=== PATIENT | female | born 1975 | race African-American/Black ===

== ENCOUNTER 2018-07-06 20:41 | Emergency (ER) | payer BC ==
[2018-07-06 20:55] VITALS: RESP 18
--- NOTE | 2018-07-06 21:39 | ED ---
General Adult HPI - General Chief complaint: Abdominal Pain Stated complaint: abdominal pain/black stool Time Seen by Provider: 07/06/18 21:39 Source: patient Mode of arrival: ambulatory Limitations: no limitations - History of Present Illness Initial comments: 43-year-old diabetic female presents to the ER for evaluation of multiple days of epigastric abdominal burning, cramping, nausea and one episode of dark stools today. Patient reports that she's been having some epigastric discomfort for a number of days, she was evaluated at an outpatient clinic earlier in the week and advised that she likely has GERD, she was prescribed Protonix and advised to follow up outpatient. Patient reports she has taken 2 doses of Protonix but continues to have burning epigastric pain. She states that she is also been taking Khadra-[place] and Pepto with temporary relief of her abdominal discomfort. Patient reports that this morning she had a bowel movement and noted that it was very dark in color, she became concerned that this may indicate that there was blood in her stool so she came to the ER for reevaluation. Patient reports persistent nausea but no vomiting. She reports that she hasn't been eating or drinking well for a few days. She reports that she is concerned she may be getting dehydrated because her urine looked very dark today. Patient reports that she occasionally takes Midol when she is having her menses , and occasionally takes Khadra-[place] but other than that does not take aspirin or NSAIDs on a daily basis. Patient denies any GI history. She has never been evaluated by GI. She has no history of acid reflux, ulcers, pancreatitis in the past. She reports that she has a social alcohol drinker but has not been drinking recently. She's not a binge drinker. She reports that she's had a history of a cholecystectomy for symptomatic cholelithiasis in the past. - Related Data Home Medications Medication Instructions Recorded Confirmed Insulin Glargine,Hum.rec.anlog 50 unit SQ BID 10/29/14 07/06/18 [Lantus Solostar] Pnv,Calcium 72/Iron/Folic Acid 1 tab PO DAILY 02/09/16 07/06/18 [ Plus Tablet] INSULIN LISPRO (HumaLOG) [HumaLOG] 25 unit SQ BID 07/06/18 07/06/18 Previous Rx's Medication Instructions Recorded Nitrofurantoin Monohyd/M-Cryst 100 mg PO Q12HR 5 Days #10 cap 07/06/18 [Macrobid] Sucralfate [Carafate] 1 gm PO ACHS #1 bottle 07/06/18 Allergies Allergy/AdvReac Type Severity Reaction Status Date / Time cephalexin monohydrate Allergy Rash/Hives Verified 07/06/18 21:15 [From Keflex] Penicillins Allergy Rash/Hives Verified 07/06/18 21:15 erythromycin base AdvReac Nausea & Verified 07/06/18 21:15 [Erythromycin Base] Vomiting & Diarrhea Review of Systems ROS Statement: Those systems with pertinent positive or pertinent negative responses have been documented in the HPI. ROS Other: All systems not noted in ROS Statement are negative. Past Medical History Past Medical History: Diabetes Mellitus, Hypertension Additional Past Medical History / Comment(s): syncopal episodes, ectopic History of Any Multi-Drug Resistant Organisms: None Reported Past Surgical History: Appendectomy, Cholecystectomy Additional Past Surgical History / Comment(s): D&C, fallopian tube Past Psychological History: Anxiety, Depression Smoking Status: Never smoker Past Alcohol Use History: Rare Past Drug Use History: None Reported General Exam Limitations: no limitations General appearance: alert, in no apparent distress Head exam: Present: atraumatic, normocephalic Eye exam: Present: normal appearance, PERRL ENT exam: Present: normal exam Neck exam: Present: normal inspection Respiratory exam: Present: normal lung sounds bilaterally. Absent: respiratory distress Cardiovascular Exam: Present: regular rate, normal rhythm GI/Abdominal exam: Present: soft, tenderness, normal bowel sounds. Absent: distended, guarding, rebound, rigid Rectal exam: Present: normal rectal tone. Absent: heme (+) stool, black stool, bloody stool, fecal impaction Extremities exam: Present: full ROM, normal capillary refill. Absent: pedal edema Back exam: Present: normal inspection Neurological exam: Present: alert, oriented X3 Psychiatric exam: Present: normal affect, normal mood Skin exam: Present: warm, dry. Absent: petechiae, pallor Course Vital Signs 07/06/18 07/06/18 20:53 23:51 Temperature 98.3 F 98.0 F Pulse Rate 91 88 Respiratory 18 18 Rate Blood Pressure 158/106 149/89 O2 Sat by Pulse 100 100 Oximetry EKG Findings - EKG Comments: EKG Findings:: EKG obtained at 2211, rate is 65, rhythm is sinus, normal axis, normal intervals, NC 158, QRS 92, QTc 436, there are no acute ST elevations or depressions, there is no evidence of acute ischemia or infarction Medical Decision Making - Medical Decision Making The patient was seen and evaluated, history is obtained from the patient Patient with burning epigastric abdominal pain for a number of days, has been taking Protonix 2 days as well as drinking Pepto, noted that she had some black stools today Guaiac was negative, I suspect the black discoloration of her stools is secondary to taking Pepto and discussed this with the patient Patient is otherwise hemodynamically stable, however she is a 43-year-old -[place] diabetic female with epigastric discomfort so I will pursue a further workup with EKG, labs and chest x-ray Labs and imaging were unremarkable Results were discussed with the patient who reports some improvement after GI cocktail Patient agreeable to plan for discharge home, by mouth Carafate, discontinuation of Pepto and follow up with gastroenterology. All questions pertaining to care were answered to the best my ability the patient was discharged home in stable condition. - Lab Data Result diagrams: 07/06/18 21:05 07/06/18 21:05 Lab Results 07/06/18 07/06/18 07/06/18 Range/Units 21:05 21:05 21:05 WBC 9.2 (3.8-10.6) k/uL RBC 5.44 H (3.80-5.40) m/uL Hgb 13.1 (11.4-16.0) gm/dL Hct 42.9 (34.0-46.0) % MCV 78.8 L (80.0-100.0) fL MCH 24.1 L (25.0-35.0) pg MCHC 30.6 L (31.0-37.0) g/dL RDW 14.8 (11.5-15.5) % Plt Count 313 (150-450) k/uL Neutrophils % 41 % Lymphocytes % 47 % Monocytes % 6 % Eosinophils % 3 % Basophils % 1 % Neutrophils # 3.7 (1.3-7.7) k/uL Lymphocytes # 4.3 (1.0-4.8) k/uL Monocytes # 0.6 (0-1.0) k/uL Eosinophils # 0.3 (0-0.7) k/uL Basophils # 0.1 (0-0.2) k/uL Hypochromasia Slight Sodium 140 (137-145) mmol/L Potassium 3.9 (3.5-5.1) mmol/L Chloride 104 (98-107) mmol/L Carbon Dioxide 24 (22-30) mmol/L Anion Gap 12 mmol/L BUN 11 (7-17) mg/dL Creatinine 0.79 (0.52-1.04) mg/dL Est GFR (CKD-EPI)AfAm >90 (>60 ml/min/1.73 sqM) Est GFR (CKD-EPI)NonAf >90 (>60 ml/min/1.73 sqM) Glucose 130 H (74-99) mg/dL Calcium 9.4 (8.4-10.2) mg/dL Total Bilirubin 0.7 (0.2-1.3) mg/dL AST 23 (14-36) U/L ALT 24 (9-52) U/L Alkaline Phosphatase 64 (38-126) U/L Troponin I (0.000-0.034) ng/mL Total Protein 8.2 (6.3-8.2) g/dL Albumin 4.5 (3.5-5.0) g/dL Amylase 45 (30-110) U/L Lipase 50 (23-300) U/L Urine Color Yellow Urine Appearance Cloudy H (Clear) Urine pH 6.0 (5.0-8.0) Ur Specific Myra 1.028 (1.001-1.035) Urine Protein 1+ H (Negative) Urine Glucose (UA) Trace H (Negative) Urine Ketones Negative (Negative) Urine Blood Negative (Negative) Urine Nitrite Negative (Negative) Urine Bilirubin Negative (Negative) Urine Urobilinogen 2.0 (<2.0) mg/dL Ur Leukocyte Esterase Moderate H (Negative) Urine RBC 2 (0-5) /hpf Urine WBC 43 H (0-5) /hpf Ur Squamous Epith Cells 17 H (0-4) /hpf Urine Bacteria Many H (None) /hpf Hyaline Casts 46 H (0-2) /lpf Urine Mucus Few H (None) /hpf //18 Range/Units 21:05 WBC (3.8-10.6) k/uL RBC (3.80-5.40) m/uL Hgb (11.4-16.0) gm/dL Hct (34.0-46.0) % MCV (80.0-100.0) fL MCH (25.0-35.0) pg MCHC (31.0-37.0) g/dL RDW (11.5-15.5) % Plt Count (150-450) k/uL Neutrophils % % Lymphocytes % % Monocytes % % Eosinophils % % Basophils % % Neutrophils # (1.3-7.7) k/uL Lymphocytes # (1.0-4.8) k/uL Monocytes # (0-1.0) k/uL Eosinophils # (0-0.7) k/uL Basophils # (0-0.2) k/uL Hypochromasia Sodium (137-145) mmol/L Potassium (3.5-5.1) mmol/L Chloride (98-107) mmol/L Carbon Dioxide (22-30) mmol/L Anion Gap mmol/L BUN (7-17) mg/dL Creatinine (0.52-1.04) mg/dL Est GFR (CKD-EPI)AfAm (>60 ml/min/1.73 sqM) Est GFR (CKD-EPI)NonAf (>60 ml/min/1.73 sqM) Glucose (74-99) mg/dL Calcium (8.4-10.2) mg/dL Total Bilirubin (0.2-1.3) mg/dL AST (14-36) U/L ALT (9-52) U/L Alkaline Phosphatase (38-126) U/L Troponin I <0.012 (0.000-0.034) ng/mL Total Protein (6.3-8.2) g/dL Albumin (3.5-5.0) g/dL Amylase (30-110) U/L Lipase (23-300) U/L Urine Color Urine Appearance (Clear) Urine pH (5.0-8.0) Ur Specific Myra (1.001-1.035) Urine Protein (Negative) Urine Glucose (UA) (Negative) Urine Ketones (Negative) Urine Blood (Negative) Urine Nitrite (Negative) Urine Bilirubin (Negative) Urine Urobilinogen (<2.0) mg/dL Ur Leukocyte Esterase (Negative) Urine RBC (0-5) /hpf Urine WBC (0-5) /hpf Ur Squamous Epith Cells (0-4) /hpf Urine Bacteria (None) /hpf Hyaline Casts (0-2) /lpf Urine Mucus (None) /hpf Disposition Clinical Impression: Epigastric pain, UTI (urinary tract infection) Disposition: HOME SELF-CARE Condition: Good Instructions: Urinary Tract Infection in Women (ED), Abdominal Pain (ED) Prescriptions: Nitrofurantoin Monohyd/M-Cryst [Macrobid] 100 mg PO Q12HR 5 Days #10 cap Sucralfate [Carafate] 1 gm PO ACHS #1 bottle Is patient prescribed a controlled substance at d/c from ED?: No Referrals: Sadiq Cates MD [Primary Care Provider] - 1-2 days Roseanna Adame MD [STAFF PHYSICIAN] - 1-2 days Time of Disposition: 23:06
[2018-07-06 21:50] LABS: Basophils # (A) 0.1 k/uL (0-0.2); Basophils % (A) 1 %; Eosinophils # (A) 0.3 k/uL (0-0.7); Eosinophils % (A) 3 %; HCT 42.9 % (34.0-46.0); HGB 13.1 gm/dL (11.4-16.0); Hypochromasia Slight; Lymphocytes # (A) 4.3 k/uL (1.0-4.8); Lymphocytes % (A) 47 %; MCH 24.1 pg (25.0-35.0); MCHC 30.6 g/dL (31.0-37.0); MCV 78.8 fL (80.0-100.0); Mean Platelet Volume 6.6; Monocytes # (A) 0.6 k/uL (0-1.0); Monocytes % (A) 6 %; Neutrophils # (A) 3.7 k/uL (1.3-7.7); Neutrophils % (A) 41 %; Platelet Count 313 k/uL (150-450); RBC 5.44 m/uL (3.80-5.40); RDW 14.8 % (11.5-15.5); WBC 9.2 k/uL (3.8-10.6)
[2018-07-06] MEDS ORDERED: MAG HYDROX/AL HYDROX/SIMETH 30 ML, HYOSCYAMINE ELIXIR 10 ML, CIMETIDINE HCL 300 MG, LID... PO STA ×4 (21:54)
[2018-07-06] MEDS ORDERED: SODIUM CHLORIDE 0.9% 1,000 ML IV ONE (21:54)
[2018-07-06 22:05] LABS: ALT 24 U/L (9-52); AST 23 U/L (14-36); Albumin 4.5 g/dL (3.5-5.0); Alkaline Phosphatase 64 U/L (38-126); Amylase 45 U/L (30-110); Anion Gap 12 mmol/L; Blood Urea Nitrogen 11 mg/dL (7-17); Calcium 9.4 mg/dL (8.4-10.2); Carbon Dioxide 24 mmol/L (22-30); Chloride 104 mmol/L (98-107); Glucose 130 mg/dL (74-99); Lipase 50 U/L (23-300); Potassium 3.9 mmol/L (3.5-5.1); Sodium 140 mmol/L (137-145); Total Bilirubin 0.7 mg/dL (0.2-1.3); Total Protein 8.2 g/dL (6.3-8.2)
[2018-07-06 22:13] LABS: Appearance,Urine Cloudy (Clear); Bacteria,Urine Many /hpf; Bilirubin,Urine Negative (Negative); Blood,Urine Negative (Negative); Color,Urine Yellow; Glucose,Urine (UA) Trace (Negative); Hyaline Casts,Urine 46 /lpf (0-2); Ketones,Urine Negative (Negative); Leukocyte Esterase,Urine Moderate (Negative); Mucus,Urine Few /hpf; Nitrite,Urine Negative (Negative); Protein,Urine 1+ (Negative); RBC,Urine 2 /hpf (0-5); Specific Gravity,Urine 1.028 (1.001-1.035); Squamous Epithelial Cell,Urine 17 /hpf (0-4); WBC,Urine 43 /hpf (0-5)
--- NOTE | 2018-07-06 22:41 | XR ---
EXAMINATION TYPE: XR abdomen acute w cxr DATE OF EXAM: 07/06/2018 COMPARISON: 07/15/2014 HISTORY: Epigastric pain TECHNIQUE: Chest x-ray with supine and upright abdomen FINDINGS: There is no heart failure nor confluent pneumonic infiltrate. Heart and mediastinum are normal. There are clips from cholecystectomy. Bowel gas pattern is normal. There is no sign of intestinal obstruct ion or pneumoperitoneum. Fecal pattern is normal. IMPRESSION: Nonacute abdomen. Normal chest. No change.
[2018-07-06] MEDS ORDERED: NITROFURANTOIN MONOHYD/M-CRYST 100 MG CAP PO STA (23:06)
[2018-07-06 23:52] VITALS: BP 149/89; PULSE 88; TEMP 98
== END 2018-07-06 23:53 | disposition home or self-care (01) ==
LOC: EC 20:41
DX: N39.0 Urinary tract infection, site not specified (principal); R10.13 Epigastric pain; R11.0 Nausea; R19.5 Other fecal abnormalities; E11.9 Type 2 diabetes mellitus without complications; Z79.4 Long term (current) use of insulin; Z88.0 Allergy status to penicillin; Z88.1 Allergy status to other antibiotic agents; Z90.49 Acquired absence of other specified parts of digestive tract
CPT/HCPCS: 36415; 74022; 80053; 81001; 82150; 83690; 84484; 85025; 93005; 96360; 99284

== ENCOUNTER → 2018-08-22 | Outpatient (CLI) | payer BC ==
--- NOTE | 2018-08-22 15:35 | XR ---
EXAMINATION TYPE: XR Hip Complete RT DATE OF EXAM: 08/22/2018 CLINICAL HISTORY: Right hip pain. TECHNIQUE: AP and frogleg views of the right hip are obtained. COMPARISON: None. FINDINGS: There is no acute fracture/dislocation evident in the right hip. There is mild to moderate superior axial joint space loss with superolateral acetabular spurring. Slight over covering is pres ent suspicious for cam-type impingement. The overlying soft tissue appears unremarkable. IMPRESSION: As above .
== END | disposition home or self-care (01) ==
LOC: RADXRMAIN 15:02
PROVIDERS: ATTEND Family Medicine
DX: M76.9 Unspecified enthesopathy, lower limb, excluding foot (principal)
CPT/HCPCS: 73502